=== PATIENT | female | born 1955 | race Hispanic/Latino ===

== ENCOUNTER 2017-11-04 09:54 | Emergency (ER) | payer OTHER, MEDICARE ==
[2017-11-04 10:20] LABS: #Basophils 0.1 thou/uL (0.0-0.2); #Eosinphils 0.1 thou/uL (0.0-0.7); #Monocytes 0.6 thou/uL (0.11-0.59); #Neutrophils 7.9 thou/uL (1.40-6.50); %Basophils 0.5 % (0.0-1.0); %Eosinophils 0.6 % (0.0-10.0); %Monocytes 5.2 % (0.0-10.0); Hematocrit 42.1 % (36.0-47.0); Mean Platelet Volume 8.8 fL (7.4-10.4); Red Blood Cell (RBC) Count 4.65 mill/uL (4.20-5.40); White Blood Cell (WBC) Count 11.7 thou/uL (4.8-10.8)
--- NOTE | 2017-11-04 10:38 | RAD ---
THREE VIEWS OF THE RIGHT CHEST WALL: INDICATION: Pain with right chest wall pain. FINDINGS: No displaced right-sided rib fracture is identified. The visualized right lungs are clear. There is postsurgical change of a prior CABG. IMPRESSION: No displaced right-sided rib fracture. POS: [facility]
[2017-11-04 10:44] LABS: ALT (SGPT) 14 U/L (8-55); AST (SGOT) 13 U/L (5-34); Alkaline Phosphatase 190 U/L (40-150); Anion Gap 14 mmol/L (10-20); BUN (Urea Nitrogen) 14 mg/dL (9.8-20.1); Bilirubin, Total 0.5 mg/dL (0.2-1.2); Calc. Creatinine Clearance 0 mL/min (70-130); Calcium 10.1 mg/dL (7.8-10.44); Carbon Dioxide 24 mmol/L (23-31); Chloride 99 mmol/L (98-107); Estimated GFR-MDRD 67; Globulin 3.6 g/dL (2.4-3.5); Protein, Total 7.7 g/dL (6.0-8.3)
--- NOTE | 2017-11-04 11:01 | RAD ---
EXAM: ONE VIEW CHEST: HISTORY: Trauma. Pain. Evaluate for pneumothorax. FINDINGS: There are sternotomy wires. Atherosclerosis of the aorta. Normal cardiac silhouette. The pulmonary vessels and hilum are normal. No mass. No consolidation. No pneumothorax or osseous abnormalities . IMPRESSION: 1. No pneumothorax. 2. Atherosclerosis. POS: [facility]
[2017-11-04 12:02] LABS: Bilirubin Negative (Negative); Blood, Urine Negative (Negative); Glucose, Urine (Dipstick) >=1000 mg/dL (Negative); Ketone, Urine Trace mg/dL (Negative); Nitrite Negative (Negative); Protein, Urine (Dipstick) Negative (Neg-Trace)
== END 2017-11-04 12:48 | disposition home or self-care (01) ==
LOC: ERS 09:54
DX: S20.211A Contusion of right front wall of thorax, initial encounter (principal); I11.0 Hypertensive heart disease with heart failure; I50.9 Heart failure, unspecified; E11.9 Type 2 diabetes mellitus without complications; E78.5 Hyperlipidemia, unspecified; W19.XXXA Unspecified fall, initial encounter
CPT/HCPCS: 36415; 71010; 80053; 81003; 83880; 85025; 94799

== ENCOUNTER 2018-10-14 10:20 | Emergency (ER) | payer MEDICARE, OTHER ==
[2018-10-14 12:07] LABS: #Basophils 0.1 thou/uL (0.0-0.2); #Eosinphils 0.1 thou/uL (0.0-0.7); #Lymphocytes 3.4 thou/uL (1.20-3.40); #Monocytes 0.7 thou/uL (0.11-0.59); #Neutrophils 6.3 thou/uL (1.40-6.50); %Basophils 0.8 % (0.0-1.0); %Eosinophils 1.1 % (0.0-10.0); %Lymphocytes 31.8 % (21.0-51.0); %Monocytes 6.7 % (0.0-10.0); %Neutrophils 59.6 % (42.0-75.0); Hemoglobin 11.6 g/dL (12.0-16.0); Mean Corpuscular HGB CONC 30.5 g/dL (32.0-36.0); Mean Corpuscular Hemoglobin 27.1 pg (27.0-31.0); Mean Corpuscular Volume 88.6 fL (78.0-98.0); Mean Platelet Volume 9.8 fL (7.4-10.4); Platelet Count 217 thou/uL (130-400); RBC Distribution Width 13.3 % (11.5-14.5); Red Blood Cell (RBC) Count 4.27 mill/uL (4.20-5.40); White Blood Cell (WBC) Count 10.6 thou/uL (4.8-10.8)
[2018-10-14 12:25] LABS: CKMB 3.4 ng/mL (0-6.6); Troponin I 0.017 ng/mL (< 0.028)
--- NOTE | 2018-10-14 12:28 | RAD ---
CHEST ONE VIEW: HISTORY: Congestive heart failure. COMPARISON: 08/05/2018 FINDINGS: There are sternotomy wires. Atherosclerosis of the aorta. Normal cardiac silhouette. Pulmonary ves sels and hilum are normal. Costophrenic angles are clear. No masses or consolidation. No pneumotho rax or osseous abnormality. IMPRESSION: 1. Atherosclerosis. 2. No acute cardiopulmonary process. POS: [facility]
[2018-10-14 12:30] LABS: ALT (SGPT) 12 U/L (8-55); AST (SGOT) 16 U/L (5-34); Albumin 3.9 g/dL (3.4-4.8); Alkaline Phosphatase 185 U/L (40-150); Anion Gap 15 mmol/L (10-20); BUN (Urea Nitrogen) 18 mg/dL (9.8-20.1); Bilirubin, Total 0.3 mg/dL (0.2-1.2); CK (CPK) 66 U/L (29-168); Calc. Creatinine Clearance 0 mL/min (70-130); Calcium 9.3 mg/dL (7.8-10.44); Carbon Dioxide 21 mmol/L (23-31); Chloride 107 mmol/L (98-107); Estimated GFR-MDRD 71; Globulin 3.2 g/dL (2.4-3.5); Glucose 177 mg/dL (80-115); Lipase 26 U/L (8-78); Potassium 4.1 mmol/L (3.5-5.1); Protein, Total 7.1 g/dL (6.0-8.3); Sodium 139 mmol/L (136-145)
[2018-10-14 13:04] LABS: Bilirubin Negative (Negative); Blood, Urine Negative (Negative); Clarity CLOUDY (Clear); Glucose, Urine (Dipstick) 100 mg/dL (Negative); Leukocyte Negative (Negative); Nitrite Negative (Negative); Protein, Urine (Dipstick) 30 mg/dL (Neg-Trace); Specific Gravity, Urine 1.019 (1.002-1.036)
[2018-10-14 13:07] LABS: Hyaline Casts/LPF 4-6 HYALINE CAST LPF (0-3 Hyaline); Pathc Cast-AUWi Flag 0.58 (0-2.49); RBC/HPF 0-3 HPF (0-3); Squamous Epithelial 21-50 HPF (0-3)
[2018-10-14 13:21] LABS: Bacteria/HPF Rare-Few HPF (None Seen); Renal Epithelial None Seen HPF (0-3); Transitional Epithelial NONE SEEN HPF (0-3)
== END 2018-10-14 13:13 | disposition home or self-care (01) ==
LOC: ERS 10:20
DX: M62.81 Muscle weakness (generalized) (principal); R53.83 Other fatigue; E11.9 Type 2 diabetes mellitus without complications; E78.5 Hyperlipidemia, unspecified; I11.0 Hypertensive heart disease with heart failure; I50.9 Heart failure, unspecified; Z79.899 Other long term (current) drug therapy; Z79.4 Long term (current) use of insulin
CPT/HCPCS: 36416; 51701; 71045; 80053; 81003; 81015; 82550; 82553; 83690; 83880; 84484; 85025; 87086; 93005; A4353

== ENCOUNTER 2019-04-12 09:48 | Outpatient (CLI) | payer MEDICARE, MEDICAID ==
--- NOTE | 2019-04-12 10:54 | CT ---
CT ANGIOGRAM NECK WITH CONTRAST: DATE: 04/12/2019 HISTORY: 64-year-old female with carotid atherosclerotic disease. Evaluate degree of carotid stenosis. TECHNIQUE: After IV contrast injection, arterial bolus chasing technique scan performed from aortopulmonic windo w to skull base Coronal and sagittal 3-D MIP reconstructions. FINDINGS: Brachiocephalic: No stenosis Right subclavian: No stenosis Right common carotid: No stenosis Right internal carotid: Mild to moderate calcified plaque at origin at carotid bulb causing up to 50% stenosis. The rest of the cervical internal carotid is normal. Bilateral vertebral: Codominant and normal. Left subclavian: Much of distal portion obscured by streak artifact from contrast bolus in adjacent l eft subclavian and brachiocephalic veins. Severe stenosis, approximately 80-95%, at proximal aspect beginning 7 mm from its origin, due to combination of calcified and noncalcified prominent plaque. No significant stenosis between this segment and level origin of left vertebral artery. Left common carotid: No high-grade stenosis. Left internal carotid: Large calcified and noncalcified plaque at proximal left internal carotid, inc luding at origin, where there is severe stenosis, 75-90%. IMPRESSION: 1. Atheromatous plaque at proximal left internal carotid causing severe stenosis at origin. 2. Atheromatous plaque at proximal left subclavian causing severe stenosis. 3. Atheromatous plaque at proximal right internal carotid causing moderate stenosis.
[2019-04-12] MEDS ORDERED: ISOVUE-370 76%-LOCM 1 ML ONE (10:56)
== END 2019-04-12 09:49 | disposition home or self-care (01) ==
LOC: BICCT 09:48
PROVIDERS: ATTEND Thoracic Surgery (Cardiothoracic Vascular Surgery)
DX: I65.23 Occlusion and stenosis of bilateral carotid arteries (principal); I25.10 Atherosclerotic heart disease of native coronary artery without angina pectoris; I70.8 Atherosclerosis of other arteries
CPT/HCPCS: 70498; 82565; Q9966

== ENCOUNTER 2019-04-13 09:04 | Outpatient (CLI) | payer MEDICARE, MEDICAID ==
[2019-04-13 18:06] LABS: Hemoglobin 11.7 g/dL (12.0-16.0); Mean Corpuscular HGB CONC 31.8 g/dL (32.0-36.0); Mean Corpuscular Hemoglobin 28.1 pg (27.0-31.0); Mean Corpuscular Volume 88.6 fL (78.0-98.0); Mean Platelet Volume 10.7 fL (7.4-10.4); Platelet Count 194 thou/uL (130-400); RBC Distribution Width 13.1 % (11.5-14.5); Red Blood Cell (RBC) Count 4.14 mill/uL (4.20-5.40); White Blood Cell (WBC) Count 10.7 thou/uL (4.8-10.8)
[2019-04-13 18:36] LABS: Anion Gap 12 mmol/L (10-20); BUN (Urea Nitrogen) 19 mg/dL (9.8-20.1); Calc. Creatinine Clearance 0 mL/min (70-130); Calcium 9.7 mg/dL (7.8-10.44); Carbon Dioxide 26 mmol/L (23-31); Chloride 102 mmol/L (98-107); Estimated GFR-MDRD 55; Glucose 368 mg/dL (80-115); Potassium 4.5 mmol/L (3.5-5.1); Sodium 135 mmol/L (136-145)
== END 2019-04-13 09:05 | disposition home or self-care (01) ==
LOC: LABBT 09:04
PROVIDERS: ATTEND Thoracic Surgery (Cardiothoracic Vascular Surgery)
DX: Z01.818 Encounter for other preprocedural examination (principal); I65.22 Occlusion and stenosis of left carotid artery
CPT/HCPCS: 80048; 85027; 93005; 93010

== ENCOUNTER 2019-04-13 16:00 | Inpatient (IN) | payer OTHER, MEDICARE, MEDICAID ==
[2019-04-13 16:36] VITALS: BMI 26.9
[2019-04-14] MEDS ORDERED: Insulin Regular 300 UNITS/3 ML VIAL ONE (11:07)
[2019-04-14] MEDS ORDERED: Heparin 5,000 UNITS/ML VIAL ONE (11:19)
[2019-04-14] MEDS ORDERED: Protamine Sulfate 50 MG/5 ML VIAL ONE (11:19)
[2019-04-14] MEDS ORDERED: Fentanyl 250 MCG/5 ML VIAL ONE (11:44)
[2019-04-14] MEDS ORDERED: hydrALAZINE 20 MG/ML VIAL ONE (11:45)
[2019-04-14] MEDS ORDERED: Lidocaine 4% Topical Sol 50 ML BOT ONE (11:46)
[2019-04-14] MEDS ORDERED: Ondansetron HCl/PF 4 MG/2 ML Vial IVP PRN (13:35)
[2019-04-14] MEDS ORDERED: Promethazine HCl 25 MG/ML VIAL IM PRN (13:35)
[2019-04-14] MEDS ORDERED: Promethazine HCl 25 MG/ML VIAL SLOW IVP PRN (13:35)
[2019-04-14] MEDS ORDERED: Fentanyl 100 MCG/2 ML VIAL ONE (14:12)
[2019-04-14] MEDS ORDERED: HYDROcodone/Acetaminophen 10/325 mg Tablet PO PRN (14:23)
[2019-04-14] MEDS ORDERED: Ondansetron PF 4 MG/2 ML Vial IVP PRN (14:23)
[2019-04-14] MEDS ORDERED: Insulin Regular 300 UNITS/3 ML VIAL SC PRN (14:23)
[2019-04-14] MEDS ORDERED: Fentanyl 100 MCG/2 ML VIAL SLOW IVP PRN (14:23)
[2019-04-14] MEDS ORDERED: Phenylephrine 10 MG/NS 250 ML 250 ML IVPB PRN (14:23)
[2019-04-14] MEDS ORDERED: HYDROcodone/Acetaminophen 5/325 mg Tablet PO PRN (14:23)
[2019-04-14] MEDS ORDERED: Sodium Chloride 0.9% 1,000 ML IV SCH (14:23)
[2019-04-14] MEDS ORDERED: Nitroglycerin 0.4 MG TAB (25 Tab Bottle) SL PRN (14:23)
[2019-04-14] MEDS ORDERED: Acetaminophen 325 MG TAB PO PRN (14:23)
[2019-04-14] MEDS ORDERED: hydrALAZINE 20 MG/ML VIAL SLOW IVP PRN (14:23)
[2019-04-14] MEDS ORDERED: ePHEDrine 50 MG/ML VIAL ONE (15:01)
[2019-04-14] MEDS ORDERED: PHENYLEPHRINE-NS 100 MCG/ML 10 ML SYRINGE ONE (15:01)
[2019-04-14] MEDS ORDERED: Ondansetron PF 4 MG/2 ML Vial ONE (15:01)
[2019-04-14] MEDS ORDERED: Glycopyrrolate 0.2 MG/ML 5 ML SYRINGE ONE (15:01)
[2019-04-14] MEDS ORDERED: PROPOFOL 200 MG/20 ML VIAL ONE (15:01)
[2019-04-14] MEDS ORDERED: Lidocaine 1% PF 5 ML VIAL ONE (15:01)
[2019-04-14] MEDS ORDERED: Rocuronium Bromide 10 MG/ML (10ML VIAL) ONE (15:01)
--- NOTE | 2019-04-14 16:44 | OP ---
DATE OF PROCEDURE: 04/14/2019 PREOPERATIVE DIAGNOSIS: Asymptomatic left carotid stenosis. POSTOPERATIVE DIAGNOSIS: Asymptomatic left carotid stenosis. PROCEDURE: Left carotid endarterectomy with patch angioplasty. ANESTHESIA: General endotracheal. ESTIMATED BLOOD LOSS: Less than 100. DESCRIPTION OF PROCEDURE: After consent was obtained, the patient was brought to the operating room and placed supine position on operative table. Appropriate central line was placed and general endotracheal anesthesia was induced. The neck was extended and rotated to the right. Left neck was prepped and draped in the usual sterile fashion. Skin incision was made and dissection through the platysma was done with electrocautery. Left sternocleidomastoid was mobilized. The facial vein branches x2 were divided between clips and ties. Carotid sheath was entered, internal and external carotid arteries were carefully dissected. The patient was systemically heparinized. The vagus and hypoglossal nerves were noted and protected throughout the procedure. After 3 minutes, internal, common, and external carotid arteries were serially clamped. Incision was made on the common carotid artery, extended through the bulb into the internal carotid artery. There was extensive amount of cheesy, friable plaque, which was suctioned clear. This was then irrigated. A 10-[place] shunt was placed. Antegrade flow was reestablished. Endarterectomy was begun on the common carotid artery, extended through the bulb onto the internal carotid artery. The tapered distal endpoint was obtained. Medial fibers were debrided. The artery was flushed with heparinized saline until clear. A bovine pericardial patch was sewn in place with running 6-0 Prolene suture. Prior to completion of patch suture line, shunt was clamped and removed. Arteries were back bled and flushed with heparinized saline. The patch suture line was completed. Antegrade flow was reestablished at the external carotid artery for 10 seconds, followed by the internal carotid artery. Protamine was administered. Hemostasis was ensured. Wounds were irrigated and closed in layers. Dermabond applied to the skin. The patient was awakened and neurologically intact at the completion of procedure. The patient tolerated the procedure well and was transferred to the recovery room in stable condition. Job ID: [id number]
[2019-04-14] MEDS: HYDROcodone/Acetaminophen 5/325 mg Tablet PO PRN ×2 (17:21→22:08)
[2019-04-14] MEDS: Insulin Glargine 25 UNITS in Pre-Filled Syringe 1 EACH SC SCH (19:43)
[2019-04-14] MEDS: Carvedilol 6.25 MG TAB PO SCH (19:44)
[2019-04-14] MEDS ORDERED: ceFAZolin 1 GM/D5W 1 GM in Premix Bag 1 BAG IVPB SCH (20:00)
[2019-04-14] MEDS ORDERED: Rosuvastatin 20 MG TAB PO SCH (21:00)
[2019-04-15] MEDS: HYDROcodone/Acetaminophen 5/325 mg Tablet PO PRN (03:24)
[2019-04-15 07:04] VITALS: TEMP 97.5
[2019-04-15] MEDS: Insulin Glargine 25 UNITS in Pre-Filled Syringe 1 EACH SC SCH (07:59)
[2019-04-15] MEDS ORDERED: metFORMIN 500 MG TAB PO SCH (08:00)
[2019-04-15] MEDS: Carvedilol 6.25 MG TAB PO SCH (08:02)
[2019-04-15 08:13] VITALS: BP 126/76
[2019-04-15] MEDS ORDERED: Lisinopril 2.5 MG TAB PO SCH (09:00)
[2019-04-15] MEDS ORDERED: Aspirin 81 mg Enteric Coated Tablet PO SCH (09:00)
--- NOTE | 2019-04-16 03:38 | DIS ---
DATE OF ADMISSION: 04/14/2019 DATE OF DISCHARGE: 04/15/2019 DIAGNOSIS: Asymptomatic left carotid stenosis. PROCEDURE: Left carotid endarterectomy with patch angioplasty. DESCRIPTION OF HOSPITAL STAY: Ms. Villarreal was brought in for elective carotid endarterectomy. She has done well and being discharged to home to follow up with me in 2 weeks. Discharge medications are unchanged. Job ID: [id number]
== END 2019-04-15 08:21 | disposition home or self-care (01) | DRG 39 ==
LOC: SURG A 04-14 10:04 → CCU 04-14 13:46
PROVIDERS: ADMIT Thoracic Surgery (Cardiothoracic Vascular Surgery); ATTEND Thoracic Surgery (Cardiothoracic Vascular Surgery)
PROC: 03CJ0ZZ Extirpation of Matter from Left Common Carotid Artery, Open Approach (ICD-10-PCS; principal; 2019-04-14)
PROC: 03CL0ZZ Extirpation of Matter from Left Internal Carotid Artery, Open Approach (ICD-10-PCS; 2019-04-14)
PROC: 03UJ0KZ Supplement Left Common Carotid Artery with Nonautologous Tissue Substitute, Open Approach (ICD-10-PCS; 2019-04-14)
PROC: 03UL0KZ Supplement Left Internal Carotid Artery with Nonautologous Tissue Substitute, Open Approach (ICD-10-PCS; 2019-04-14)
DX: I65.22 Occlusion and stenosis of left carotid artery (principal); Z88.2 Allergy status to sulfonamides; Z95.1 Presence of aortocoronary bypass graft; Z90.49 Acquired absence of other specified parts of digestive tract
CPT/HCPCS: 36416; J0360; J0690; J1642; J1644; J1815; J1825; J2001; J2405; J2704; J2720; J3010; J3490; J7620

== ENCOUNTER 2020-06-20 16:09 | Emergency (ER) | payer MEDICARE, MEDICAID, OTHER ==
[2020-06-21 11:51] LABS: SARS-CoV-2 N Gene Negative; SARS-CoV-2 by NAA Not Detected (NotDetected); SARS-CoV-2 orf1ab Negative
[2020-06-21 11:52] LABS: SARS-CoV-2 MS2 Positive; SARS-CoV-2 S Gene Negative
== END 2020-06-20 16:15 | disposition home or self-care (01) ==
LOC: ERS 16:09
DX: Z20.828 Contact with and (suspected) exposure to other viral communicable diseases (principal); I11.0 Hypertensive heart disease with heart failure; I50.9 Heart failure, unspecified; E11.9 Type 2 diabetes mellitus without complications; E78.5 Hyperlipidemia, unspecified; F32.9 Major depressive disorder, single episode, unspecified; Z79.4 Long term (current) use of insulin; Z79.899 Other long term (current) drug therapy
CPT/HCPCS: 99283; U0003; 87635

== ENCOUNTER 2020-07-14 11:11 | Emergency (ER) | payer OTHER, MEDICARE, MEDICAID ==
[2020-07-14 17:07] LABS: SARS-CoV-2 MS2 Positive; SARS-CoV-2 N Gene Positive; SARS-CoV-2 S Gene Positive; SARS-CoV-2 by NAA DETECTED (NotDetected); SARS-CoV-2 orf1ab Positive
== END 2020-07-14 11:25 | disposition home or self-care (01) ==
LOC: ERS 11:11
DX: U07.1 COVID-19 (principal); I11.0 Hypertensive heart disease with heart failure; I50.9 Heart failure, unspecified; E11.9 Type 2 diabetes mellitus without complications; E78.5 Hyperlipidemia, unspecified; F32.9 Major depressive disorder, single episode, unspecified; Z79.4 Long term (current) use of insulin; Z79.899 Other long term (current) drug therapy
CPT/HCPCS: 87635; 99283; U0003

== ENCOUNTER 2021-03-02 12:46 | Emergency (ER) | payer OTHER, MEDICARE | END 2021-03-02 13:22 | disposition left against medical advice (07) | LOC: ERS 12:46 | DX: Z53.21 Procedure and treatment not carried out due to patient leaving prior to being seen by health care provider (principal) ==

== ENCOUNTER 2021-10-16 13:42 | Outpatient (CLI) | payer MEDICARE | END 2021-10-16 13:43 | disposition home or self-care (01) | LOC: BICMRI 13:42 | PROVIDERS: ATTEND Nurse Practitioner Acute Care | DX: M47.22 Other spondylosis with radiculopathy, cervical region (principal); M54.42 Lumbago with sciatica, left side; M47.816 Spondylosis without myelopathy or radiculopathy, lumbar region; M25.78 Osteophyte, vertebrae | CPT/HCPCS: 72156; 72158; 82565 ==

== ENCOUNTER 2022-01-11 13:13 | Outpatient (CLI) | payer OTHER, MEDICARE | END 2022-01-11 13:14 | disposition home or self-care (01) | LOC: BICRAD 13:13 | PROVIDERS: ATTEND Nurse Practitioner Family | DX: M25.552 Pain in left hip (principal) | CPT/HCPCS: 72170 ==

== ENCOUNTER 2022-04-04 10:42 | Outpatient (CLI) | payer OTHER, MEDICARE, MEDICAID | END 2022-04-04 10:43 | disposition home or self-care (01) | LOC: BICMAMMO 10:42 | PROVIDERS: ATTEND Family Medicine | DX: Z12.31 Encounter for screening mammogram for malignant neoplasm of breast (principal) | CPT/HCPCS: 77063; 77067 ==

== ENCOUNTER 2022-05-23 11:39 | Emergency (ER) | payer OTHER, MEDICARE, MEDICAID | END 2022-05-23 13:10 | disposition left against medical advice (07) | LOC: ERS 11:39 | DX: Z53.21 Procedure and treatment not carried out due to patient leaving prior to being seen by health care provider (principal) | CPT/HCPCS: 93005 ==

== ENCOUNTER 2022-11-24 15:44 | Emergency (ER) | payer OTHER, MEDICARE, MEDICAID ==
[2022-11-24] MEDS ORDERED: Ketorolac Tromethamine 30 MG/ML VIAL ONE (16:04)
[2022-11-24 16:43] LABS: Bacteria/HPF 2+ HPF (None Seen); Bilirubin Negative (Negative); Blood, Urine Negative (Negative); Clarity Turbid (Clear); Glucose, Urine (Dipstick) Greater than 1000 mg/dL (Negative); Ketone, Urine Negative (Negative); Leukocyte 250 Leu/uL (Negative); Nitrite Negative (Negative); Protein, Urine (Dipstick) 20 mg/dL (Neg-Trace); Specific Gravity, Urine 1.029 (1.002-1.036); Squamous Epithelial 21-50 HPF (0-3); Urobilinogen 3 mg/dL (Less than 2)
[2022-11-24 17:20] LABS: SARS-CoV-2 NAA Rapid Test Not Detected (NotDetected)
== END 2022-11-24 17:43 | disposition home or self-care (01) ==
LOC: ERS 15:44
DX: N39.0 Urinary tract infection, site not specified (principal); R73.9 Hyperglycemia, unspecified; Z20.822 Contact with and (suspected) exposure to COVID-19
CPT/HCPCS: 36416; 81003; 81015; 87086; 96372; 99283; J1885

== ENCOUNTER 2023-08-08 11:00 | Emergency (ER) | payer MEDICARE ==
[2023-08-08] MEDS ORDERED: Ibuprofen 200 MG TAB ONE (11:38)
== END 2023-08-08 12:35 | disposition home or self-care (01) ==
LOC: ERS 11:00
DX: B34.9 Viral infection, unspecified (principal); R05.9 Cough, unspecified; I10 Essential (primary) hypertension; E78.5 Hyperlipidemia, unspecified; E11.40 Type 2 diabetes mellitus with diabetic neuropathy, unspecified; Z20.822 Contact with and (suspected) exposure to COVID-19
CPT/HCPCS: 71045; 87635

== ENCOUNTER 2024-06-12 14:33 | Emergency (ER) | payer MEDICARE, OTHER ==
[2024-06-12] MEDS ORDERED: Gabapentin 100 MG CAP ONE (16:13)
[2024-06-12 18:15] LABS: Troponin I Less than 0.010 ng/mL (< 0.028)
== END 2024-06-12 18:35 | disposition home or self-care (01) ==
LOC: ERS 14:33
DX: E11.42 Type 2 diabetes mellitus with diabetic polyneuropathy (principal); G62.9 Polyneuropathy, unspecified; I25.10 Atherosclerotic heart disease of native coronary artery without angina pectoris; I10 Essential (primary) hypertension; Z95.1 Presence of aortocoronary bypass graft
CPT/HCPCS: 36415; 84484; 93005